=== PATIENT | female | born 1975 | race Caucasian/White ===

== ENCOUNTER 2024-11-17 09:04 | Outpatient (CLI) | payer MEDICAID, SELFPAY ==
[2024-11-18 20:25] LABS: HPV Source Cervix; HPV, High Risk by TMA Not Detected
== END 2024-11-17 09:05 | disposition home or self-care (01) ==
PROVIDERS: Visit Provider Registered Nurse
DX: Z00.00 Encounter for general adult medical examination without abnormal findings (principal); Z13.6 Encounter for screening for cardiovascular disorders; Z12.4 Encounter for screening for malignant neoplasm of cervix; Z11.51 Encounter for screening for human papillomavirus (HPV)
CPT/HCPCS: 80061; 87624; 87625; 88141; 88142